=== PATIENT | female | born 1975 | race Caucasian/White ===

== ENCOUNTER 2019-01-09 05:59 | Day surgery (SDC) | payer OTHER ==
[2019-01-09] MEDS: BUPIVACAINE 0.25% (MPF) 30 ML INJ (07:22)
[2019-01-09] MEDS ORDERED: ROCURONIUM 50 MG INJ (07:53)
[2019-01-09] MEDS ORDERED: PROPOFOL 20 ML (07:53)
[2019-01-09] MEDS ORDERED: CEFAZOLIN 1 GM INJ (07:53)
[2019-01-09] MEDS ORDERED: MIDAZOLAM 1 MG/ML 2 ML INJ (07:54)
[2019-01-09] MEDS ORDERED: FENTAnyl 50 MCG/ML VIAL (07:54)
[2019-01-09] MEDS ORDERED: ROPIVACAINE 0.5 % 30 ML VIAL (07:55)
[2019-01-09] MEDS ORDERED: FENTAnyl 50 MCG/ML VIAL IV ×3 (08:00)
[2019-01-09] MEDS ORDERED: OXYCODONE/ACETAMINOPHEN (5/325) TAB PO (08:00)
[2019-01-09] MEDS ORDERED: LABETALOL HCL 20MG INJ IV (08:00)
[2019-01-09] MEDS ORDERED: HYDROmorphONE 1 MG/5 ML IV SYRINGE IV (08:00)
[2019-01-09] MEDS ORDERED: EPHEDrine SULFATE 50 MG/5 ML SYG IV (08:00)
[2019-01-09] MEDS ORDERED: METOCLOPRAMIDE 10 MG INJ IV (08:00)
[2019-01-09] MEDS ORDERED: ONDANSETRON 4 MG INJ IV (08:00)
[2019-01-09] MEDS ORDERED: DIPHENHYDRAMINE 50 MG INJ IV (08:00)
[2019-01-09] MEDS ORDERED: MEPERIDINE 25 MG INJ IV (08:00)
[2019-01-09] MEDS ORDERED: KETOROLAC 30 MG INJ (08:23)
[2019-01-09] MEDS ORDERED: METOCLOPRAMIDE 10 MG INJ (08:23)
[2019-01-09] MEDS ORDERED: ONDANSETRON 4 MG INJ (08:23)
[2019-01-09] MEDS ORDERED: DEXAMETHASONE 4 MG/ML 5 ML INJ (08:23)
[2019-01-09] MEDS: HYDROmorphONE 1 MG/5 ML IV SYRINGE IV ×2 (09:10→09:44)
[2019-01-09] MEDS: HYDROCODONE/APAP (5/325) TAB PO (09:40)
== END 2019-01-09 10:30 | disposition home or self-care (01) ==
LOC: SDS 05:59
DX: K80.10 Calculus of gallbladder with chronic cholecystitis without obstruction (principal)
CPT/HCPCS: 47562; 88304